=== PATIENT | male | born 1935 | race Caucasian/White ===

== ENCOUNTER 2017-02-28 14:15 | Inpatient (IN) | payer MEDICARE, BC ==
[~2017-02-28] VITALS: Ht 175.3 cm; Wt 91.7 kg
--- NOTE | ~2017-02-28 | CON ---
PATIENT'S NAME: POP LIU [facility] AGE: 81 Y [address] ROOM: [place] [address] LOCATION: GICU ADMIT DATE: 02/28/2017 Consultation DISCHARGE DATE: FAMILY PHYSICIAN: Gustavo Guidry MD ATTENDING PHYSICIAN: MARVIN FELIX REFERRING PHYSICIAN: Rose Marie Aguilar MD Consult for Dr. Mar, hospitalist. This 81-year-old gentleman is referred for rehab evaluation/GIRP evaluation admission. He was admitted on 02/28/2017 with history of root canal work 2 days before and was noted to be on amoxicillin; however, he reports he became confused progressively and spiked temperature of 102 Fahrenheit. He was admitted to the local hospital and started on Zosyn. CT scan of the brain showed a little enlargement of the ventricles of the brain. He was referred here for definitive management with questionable meningitis. He did have meningitis 4 years ago QAMARKER] post dental procedure. MEDICAL HISTORY: As follows: 1. Chronic lower extremity edema with congestive heart failure. 2. Hypertension. 3. Coronary artery disease. 4. Bilateral carpal tunnel syndrome release. 5. Benign prostatic hypertrophy. He is now alert, fairly well oriented, hard of hearing, can follow instructions well. Can move all 4. Cranial nerves 2 through 12 are within normal limits. Speech is clear and not wet. His muscle strength throughout is at least 4- to 4. He is a little bit unsteady and leans to one side, mostly to the right when he walks. He is at risk of falling. He can control his bowel and bladder well. Neurologically, otherwise intact. MEDICATIONS: He is on: 1. Colace. 2. Lisinopril. 3. Coreg. 4. Florastor. 5. Protonix. 6. Ibuprofen. 7. Heparin. PATIENT'S NAME: POP LIU [facility] AGE: 81 Y [address] ROOM: [id number] [place] [address] LOCATION: GICU ADMIT DATE: 02/28/2017 Consultation DISCHARGE DATE: FAMILY PHYSICIAN: Gustavo Guidry MD ATTENDING PHYSICIAN: MARVIN FELIX 8. KCl. 9. Aspirin. 10. Apresoline. 11. Tylenol. 12. NaCl 0.9%. 13. Labetalol. 14. Flomax. 15. Zofran. 16. Rocephin. 17. . ASSESSMENT AND PLAN: He can ambulate slowly up to 30 feet, but he is at risk of falling with contact guard assistance and front-wheeled walker. This gentleman will benefit from intensive rehabilitation. I will be happy to take him to rehab if we have an opening at the present time, we have a full unit. However, I will watch him alongside with you. We will continue him on PT, OT. Please see the orders. All the above was explained to him. He verbalized understanding, in agreement. MD GIGI HUITRON/caseyl /[id number] d: 03/05/[id number] t: 03/06/17 0759, CONSULTATION REPORT
--- NOTE | ~2017-02-28 | DS ---
PATIENT'S NAME: POP LIU [facility] AGE: 81 Y [address] ROOM: [id number] [place], [place] [address] LOCATION: GICU ADMIT DATE: 02/28/2017 Discharge Summary DISCHARGE DATE: 03/07/2017 FAMILY PHYSICIAN: Gustavo Guidry MD ATTENDING PHYSICIAN: Tammie Kaur ADMITTING DIAGNOSIS: Aseptic meningitis. DISCHARGE DIAGNOSIS: Aseptic meningitis. SECONDARY DIAGNOSIS: Dementia, hypertension, BPH, history of fall. PROCEDURES: Lumbar puncture, MRI of head and lumbar and sacral. CONSULTATION: Infectious Disease and Neurosurgery. HISTORY OF PRESENT ILLNESS: The patient is a 81-year-old gentleman with past medical history of hypertension, dementia, BPH, and history of meningitis, who presents here with possible meningitis from [facility]. The patient recently had a root canal done and was on amoxicillin. The patient was noted to be more confused and with elevated temperature. The patient was seen at [facility] and was found to have a temp of 102, he was started on Zosyn. There was concern for meningitis and the patient was transferred to our hospital for further care. HOSPITAL COURSE: The patient had LP done while he was here. The patient was started on ceftriaxone, vancomycin, and acyclovir empirically. LP did not show any signs of bacterial infection. The only significance was elevated protein. Cultures were negative including for a PCR for virus including enterovirus, HSV-1 and HSV-2. MRI of the lumbar sacral was done for possible Parameningeal meningitis since protein was elevated, also MRI of head was acquired, both were unremarkable. The patient was also seen by Neurosurgery as the patient has mildly elevated dilated ventricles. From Neurosurgery standpoint, there was no indication for any intervention. ID was consulted for possible meningitis. Since the patient had received antibiotics before his LP at [place], it was decided just to continue antibiotic at least for 8 days. The patient completed 8 days of antibiotic. During his stay, the patient is afebrile and his confusion was resolved. Etiology of his presentation most likely secondary to aseptic meningitis, nonbacterial. The patient was seen by rehab and was recommended for the [facility]. The patient was transferred to [facility] for further rehab. Discussed case was Dr. Keating, the accepting physician. CONDITION: Stable. PATIENT'S NAME: STUDNICKA, POP J [facility] AGE: 81 Y [address] ROOM: [id number] [place], [place] [address] LOCATION: GICU ADMIT DATE: 02/28/2017 Discharge Summary DISCHARGE DATE: 03/07/2017 FAMILY PHYSICIAN: Gustavo Guidry MD ATTENDING PHYSICIAN: Tammie Kaur DISPOSITION: [facility]. DISCHARGE MEDICATIONS: Please see MAR. PENDING STUDIES: No pending studies. FOLLOWUP: Follow up with primary care physician and Dr. Keating at [facility]. PHYSICAL EXAMINATION: VITAL SIGNS: Temperature 97.5, blood pressure 127/59, pulse of 80, respiratory rate of 16. GENERAL APPEARANCE: The patient is alert and awake, sitting on the chair voicing that he wants to go home. CHEST: Clear to auscultation bilaterally. EYES: Extraocular muscle intact. HEART: Regular rate and rhythm. No murmurs, rubs, or gallops. ABDOMEN: Soft, nontender, and nondistended. Bowel sounds present. BIOCHEMISTRY TECHNOLOGIST: The patient is alert and oriented x2 not oriented to time. Motor and sensory grossly intact. Greater than 30 minutes was spent on discharge planning. MD ROHAN PERALTA/lelia /[id number] d: 03/07/17 2339 t: 03/09/17 0920, DISCHARGE SUMMARY
--- NOTE | ~2017-02-28 | HP ---
PATIENT'S NAME: POP LIU [facility] AGE: 81 Y [address] ROOM: [place] [address] LOCATION: [facility] ADMIT DATE: 02/28/2017 History & Physical DISCHARGE DATE: FAMILY PHYSICIAN: Gustavo Guidry MD ATTENDING PHYSICIAN: MARVIN FELIX DATE OF SERVICE: CHIEF COMPLAINT: Altered mental status. HISTORY OF PRESENT ILLNESS: This is obtained primarily from records accompanying the patient from [place] as well as from his family. He is a 81-year-old male with past medical history, which is incomplete, but will be discussed further below. He had a root canal 2 days ago. He was prophylactically put him on amoxicillin. Subsequently, the patient became progressively more confused and unsteady. He did develop a temperature of 102 degrees Fahrenheit. He was admitted to the hospital in [place] and started on Zosyn. A CAT scan of his head done at the hospital is verbally conveyed to have an "enlarged ventricle." There was a concern for meningitis, and the patient was transferred to [facility] for further evaluation and management. At this point, the patient is alert and oriented, possibly to his name. He is extremely tremulous and unable to provide any further details. Per discussion with his , she is concerned about meningitis as the patient has had a similar episode where he developed meningitis subsequent to a dental procedure approximately 4 years ago. That was treated in [place]. We do not have records of that. REVIEW OF SYSTEMS: The patient denies any nausea, vomiting, chest pain, and palpitations, though at this point, he is quite altered and review of systems is not accurate. PAST MEDICAL HISTORY: This is incomplete, but the patient's reports a history of: 1. Coronary artery disease. 2. Hypertension. 3. Chronic lower extremity edema. PAST SURGICAL HISTORY: Significant for carpal tunnel bilaterally. CURRENT MEDICATIONS: 1. Augmentin. PATIENT'S NAME: POP LIU [facility] AGE: 81 Y [address] ROOM: [place] [address] LOCATION: [facility] ADMIT DATE: 02/28/2017 History & Physical DISCHARGE DATE: FAMILY PHYSICIAN: Gustavo Guidry MD ATTENDING PHYSICIAN: MUNDORF,MARVIN 2. Aspirin 81. 3. Atorvastatin 10. 4. Coreg 12.5. 5. Cyanocobalamin. 6. Folic acid. 7. Furosemide. 8. Garlic. 9. Lisinopril. 10. Lutein. 11. Berthoud-3. 12. Omeprazole. 13. Potassium. 14. Flomax. SOCIAL HISTORY: Negative for any history of ongoing toxic habits. FAMILY HISTORY: Reviewed and noncontributory due to his advanced age. PHYSICAL EXAMINATION: VITAL SIGNS: At this point, blood pressure 190/80, heart rate is in the 50s, saturating 96%, temperature is 102 degrees Fahrenheit, and respirations are 16. GENERAL APPEARANCE: He is a well-developed, well-nourished, elderly male, in no acute distress, but extremely uncomfortable and with fine tremor. He does not appear toxic. NEUROLOGIC: Grossly nonfocal as the patient is not fully cooperative with the exam. EYES: Shows surgical pupils bilaterally. I could not locate his optic disk with the plain ophthalmoscope. LYMPHATIC: Shows no cervical lymphadenopathy. ENDOCRINE: Shows no thyromegaly. LUNGS: Clear to auscultation bilaterally. HEART: Heart rate is regular. No appreciable murmurs, gallops, or rubs. GI: Abdomen is soft and nontender. : No costovertebral angle tenderness. VASCULAR: 2+ pedal pulses. MUSCULOSKELETAL: No muscle or joint abnormalities. SKIN: Warm and dry. PSYCHIATRIC: Cannot be assessed. LABORATORY DATA: Review all of the labs from the outside facility shows a normal white count without any shift and a normal metabolic profile. PATIENT'S NAME: POP LIU [facility] AGE: 81 Y [address] ROOM: [place] [address] LOCATION: [facility] ADMIT DATE: 02/28/2017 History & Physical DISCHARGE DATE: FAMILY PHYSICIAN: Gustavo Guidry MD ATTENDING PHYSICIAN: MARVIN FELIX Review of the CAT scan does show considerable ventriculomegaly. ASSESSMENT AND PLAN: This is a 81-year-old male, admitted primarily for fever and encephalopathy. Individual problems to be addressed. 1. Encephalopathy: This either has an infectious versus a structural origin. At this point, I discussed the case with Dr. Aguilar, Neurosurgery, to rule out hydrocephalus. We will hold off on lumbar puncture until a neurosurgical consultation has been conducted. I think that while an infectious etiology is possible, it is less likely given nontoxic appearance and normal white count/differential. We will consider performing LP based on recommendations from Neurosurgery. Subsequent to that, we will treat the patient aggressively with antibiotics and antivirals until we have the blood cultures and CSF studies back. 2. Accelerated hypertension: This is multifactorial due to underlying essential hypertension as well as encephalopathy/confusion. We will treat that with p.r.n. pushes of labetalol. 3. Ventriculomegaly: As per item #1. 4. Benign prostatic hyperplasia: As implied by his medical regimen, we will continue him on Flomax based on how well he is able to swallow. 5. Essential hypertension: We will try and continue him on his oral medications based on how well he can swallow. 6. Deep venous thrombosis prophylaxis will be instituted once the patient has been seen by Neurosurgery and workup is under way. Additional management will depend on clinical course. Time dedicated to patient encounter is 35 minutes. MD MISHA BELCHER/lelia /[id number] D: T: HISTORY & PHYSICAL
[2017-02-28] MEDS ORDERED: AMOXICILLIN500 M1 PO (15:40)
[2017-02-28] MEDS ORDERED: ASPIRIN (CHILDR81 MG PO (15:41)
[2017-02-28] MEDS ORDERED: COREG12.5 MG PO (15:41)
[2017-02-28] MEDS ORDERED: PRILOSEC20 MG PO (15:42)
[2017-02-28] MEDS ORDERED: K-TAB 10MEQ10 MEQ PO (15:42)
[2017-02-28] MEDS ORDERED: LASIX20 MG PO (15:43)
[2017-02-28] MEDS ORDERED: PRINIVIL OR ZES10 MG PO (15:43)
[2017-02-28] MEDS ORDERED: LIPITOR10 MG PO (15:43)
[2017-02-28] MEDS ORDERED: FLOMAX0.4 MG PO (15:44)
[2017-02-28] MEDS ORDERED: VITAMIN B-122000 MC1 PO (15:45)
[2017-02-28] MEDS ORDERED: MULTI-VITAMIN1 EAC1 PO (15:45)
[2017-02-28] MEDS ORDERED: LUTEIN-ZEAXANT1 EACH PO (15:46)
[2017-02-28] MEDS ORDERED: GARLIC1000 MG PO (15:46)
[2017-02-28] MEDS ORDERED: FISH OIL OMEGA1 EAC2 PO (15:48)
[2017-02-28 17:16] LABS: BASOPHIL % 0.4 %; EOSINOPHIL # 0.1 K/uL (0.0-0.5); HEMATOCRIT 40.1 % (37.0-53.0); IMMATURE GRANULOCYTE % 0.3 %; LYMPHOCYTE # 1.7 K/uL (0.8-4.0); LYMPHOCYTE % 25.3 %; MCH 34.6 pg (27.0-34.0); MCHC 34.9 gm/dL (32.0-36.5); MONOCYTE # 0.5 K/uL (0.0-1.0); MONOCYTE % 6.9 %; NEUTROPHIL # (ANC) 4.5 K/uL (1.4-9.0); NEUTROPHIL % 66.1 %; NRBC % 0 /100WBC (0-0.00); PLATELET COUNT 184 K/uL (150-450); RBC 4.05 M/uL (3.50-5.50); RDW-CV 11.9 % (11.9-14.6); WBC 6.8 K/uL (4.0-11.0)
[2017-02-28 17:37] LABS: ALBUMIN 3.3 gm/dL (3.5-5.0); ALK PHOS 60 IU/L (33-138); ALT 17 IU/L (12-78); ANION GAP 12.7 (10.0-19.0); AST 15 IU/L (10-40); BLOOD UREA NITROGEN 14 mg/dL (6-24); CALCIUM 8.7 mg/dL (8.5-10.5); CHLORIDE 102 mMol/L (96-110); CO2 25 mMol/L (22-32); CREATININE 1.1 mg/dL (0.6-1.3); ESTIMATED GFR (MDRD EQUATION) > 60; MAGNESIUM 2.2 mg/dL (1.8-2.6); PHOSPHORUS 2.4 mg/dL (2.5-4.9); POTASSIUM 3.7 mMol/L (3.7-5.1); SODIUM 136 mMol/L (135-145); TOTAL BILIRUBIN 0.6 mg/dL (0.0-1.5); TOTAL PROTEIN 7.5 g/dL (6.0-8.4)
--- NOTE | 2017-02-28 19:24 | NUR ---
PT IS A 81 YO MALE, CAME HERE VIA AMBULANCE FROM [facility]. PT HAD BEEN AT HOME C/O TOOTHACHE FOR 1 WEEK, WENT TO DENTIST ON THURSDAY AND WAS STARTED ON ANTIBIOTICS. HAD ROOT CANAL ON THURSDAY, DID NOT FEEL WELL THAT EVENING. THURSDAY WAS UNABLE TO STAND, GENERALIZED WEAKNESS, CONFUSED. CALLED 911. STATES WHEN HE ARRIVED TO [facility] HIS TEMP WAS 106.0. PT WORSENED AND WAS SENT TO [facility]. UPON ARRIVAL PT WAS HYPERTENSIVE, TACHYCARDIC, TREMORRING, LIP SMACKING, NOT FOLLOWING COMMANDS WELL, PULLING AT CORDS, MAKING CONFUSED STATEMENTS, TRYING TO CLIMB OUT OF BED. LUNG SOUNDS CLEAR AND DIM ON RA. ACTIVE BOWEL SOUNDS. EDEMA NOTED TO LOWER LEGS. INCONTINENCE. TEMP 99.6. HERE TO R/O MENINGITIS. HAS HX OF HTN, HIGH CHOLESTEROL, EDEMA, DIFFICULTY WITH URINATION, HEART CATH, TONSILECTOMY, BACK SURGERY, HAMMER TOE SURGERY.
--- NOTE | 2017-02-28 19:47 | NUR ---
PT HERE AT 190 PER BED FOR LUMBAR PUNCTURE PER DR LUNA. PT VERY JITTERY, DIFFICULT TO UNDERSTAND. MONITORS APPLIED. V/S TO BE TAKEN Q5 MIN. A FAWN SUPERVISOR MAJOR APPLIANCE ASSEMBLY GIVES IV SEDATION, STARTS PROCEDURE AT 1910. PT TO LEFT LATERAL POSITION, PT RESTS WELL, OR NURSE ASSISTS. 1939 PROCEDURE COMPLETED. PT TOLERATES WELL. SEE V/S POSTED IN CHART. PT TO ROOM PER BED 1953
--- NOTE | 2017-03-01 04:57 | NUR ---
Significant Event: As the shift has progressed patient has improved neurologically. Now patient is alert and responds to name. Speaks in phrases/sentences instead of one-word answers. Denies pain/headache/SOB. Denies numbness or tingling. Now follows all commands and moves spontaneously. PERRLA. Continues to have lip smacking and tremors but not as bad as earlier in the shift. Refuses to answer orientation questions. Per , patient can be stubborn. Asked patient if he was being ornery and he stated, "Yes, I'm just that type of carrington." 2+ pulses. Edema throughout. Can be tachycardic at times but this has improved as the shift goes on as well. Labetalol gtt was started at 2010 and stopped at 6. SBP goal < 180. Restless/agitated at times, and during these times is when he is typically hypertensive. Does pull at cords. D/C IV to right inner forearm d/t c/o pain. Continues to have PIV to left inner forearm infusing NS at TKO and is currently on intermittent Vancomycin, Rocephin, Ampicillin, and Acyclovir. Max temp this shift 101.7. Placed fan in room and ice packs--patient very warm. Gave rectal Tylenol and temp down to 98.2 orally. On room air. Lungs clear and diminished. Remains in droplet isolation for r/o meningitis. Incontinent of urine. Bowel sounds active. No BM this shift. NPO. Bruising to arms and venous staining to legs. Callous to toe. Bedrest. Remains in a 1:1 for impulsiveness. Hi-lo bed. Follow up: activity, diet, monitor blood pressure and neuro status, monitor temperature, 1:1
--- NOTE | 2017-03-01 17:45 | NUR ---
Significant Event: PT STARTED SHIFT DISORIENTED, GARBLED SPEECH, CONFUSED, UNABLE TO COOPERATE. 0945 WRIGHT INSERTED FOR RETENTION, 1000 ML OUT RIGHT AWAY. TEMP 101.4 AT 0830, RECTAL TYLENOL GIVEN. INCREASED TO 102.5 1100, IV TYLENOL GIVEN. TEMP 102.4 AT 1245, RECTAL THERMOMETER AND COOLING BLANKET APPLIED. TREMORS AND LIP SMACKING CONTINUED THROUGHOUT SHIFT. INCREASED CONFUSION AND HALLUCINATION AT 1400. TEMP DECREASED TO 99.0 AT 1500 AND LEFT ANTERIOR UPPER ARM PIV INSERTED FOR IV ANTIBIOTICS. LEFT POSTERIOR UPPER ARM IV STILL IN PLACE. AT 1500 PT BEGAN TO RECOGNIZE FAMILY MEMBERS AND COOPERATE WITH CARES. 1600 TEMP BROKE TO 98.6, WITHIN 5 MIN BACK UP TO 100.5, CURRENTLY AT 100.8, WITH COOLING BLANKET AND ICE PACKS. RECTAL MOTRIN GIVEN. HYDRALAZINE GIVEN X2. HIGH LOW BED, 1:1 FOR PULLING CORDS AND FALL RISK. Follow up: CONTINUE TO MONITOR
--- NOTE | 2017-03-02 02:47 | NUR ---
Significant Event: Patient has been alert and oriented to self. Occasionally states the correct month or month of . Is conversationally confused and knows he is confused. Restless at times and pulls at lines. Follows commands and moves spontaneously. PERRLA. Denies pain, numbness, or tingling. States, "I'm doing fine." Continues to have lip smaking and tremors that have improved signficantly. 2+ pulses. Edema throughout. Can be tachycardic at times, otherwise is SR. HTN at times. Did give Hydralazine IVP for SBP > 180. 2 PIVs to left forearm, one is SL with no complications and the other is infusing NS at TKO without complications. Patient continues on Rocephin, Acyclovir, and Vancomycin. Continues in droplet isolation for r/o meningitis. Max temp 100.5. Continues to use a cooling blanket to assist with temperature regulation. Also has a fan in room. On room air. Lungs clear and diminished. Sanders intact draining yellow urine with sediment without complications. Bowel sounds active. No BM this shift. Poor PO intake. Had sips of water this shift. Bedrest. Bruising to arms and venous staining to legs. Callous to toe. Remains in 1:1 d/t impulsiveness. Hi lo bed. Follow up: alarms, 1:1, monitor VS and neuro status, intake
[2017-03-02 05:51] LABS: BASOPHIL % 0.1 %; HEMOGLOBIN 14.8 g/dL (11.0-16.0); IMMATURE GRANULOCYTE % 0.4 %; LYMPHOCYTE # 1.3 K/uL (0.8-4.0); MCH 34.8 pg (27.0-34.0); MCHC 35.2 gm/dL (32.0-36.5); MCV 98.8 fl (83.0-98.0); MONOCYTE # 0.6 K/uL (0.0-1.0); NEUTROPHIL % 80.5 %; NRBC % 0 /100WBC (0-0.00); PLATELET COUNT 191 K/uL (150-450); RBC 4.25 M/uL (3.50-5.50); RDW-CV 12.1 % (11.9-14.6)
[2017-03-02 06:12] LABS: ALK PHOS 55 IU/L (33-138); ALT 19 IU/L (12-78); ANION GAP 12.8 (10.0-19.0); AST 32 IU/L (10-40); BLOOD UREA NITROGEN 13 mg/dL (6-24); CALCIUM 8.6 mg/dL (8.5-10.5); CHLORIDE 104 mMol/L (96-110); CO2 22 mMol/L (22-32); CREATININE 0.9 mg/dL (0.6-1.3); ESTIMATED GFR (MDRD EQUATION) > 60; MAGNESIUM 2.2 mg/dL (1.8-2.6); PHOSPHORUS 2.8 mg/dL (2.5-4.9); POTASSIUM 3.8 mMol/L (3.7-5.1); SODIUM 135 mMol/L (135-145); TOTAL PROTEIN 7.1 g/dL (6.0-8.4)
[2017-03-02 06:15] LABS: TOTAL BILIRUBIN 0.8 mg/dL (0.0-1.5)
--- NOTE | 2017-03-02 14:55 | NUR ---
Talked with patient's nurse and reviewed demographics. Patient lives in [place] with his spouse. Nurse says if patient continues to improve, she thinks he may be able to go home in a few days. ID to see on Thu. Will follow.
--- NOTE | 2017-03-02 17:35 | NUR ---
Significant Event:Patient is alert to self. At times is alert to town and time. Needs frequent reorientation. Forgetful. Unable to assess sensation due to patients cognitive status. At times was able to tell me that he knew he was in the hospital for r/o meningitis and that this the second time this has happened to him. Moves extremities spontaneously and on command. Equal strength noted throughout. Lungs clear and diminished. VSS on room air. Hydralazine for SBP >180, did not have to give this for this shift. NSR on telemetry. Bowel sounds active. Sanedrs catheter intact. Bilateral calf pumps in place, heparin in use for VTE prophylaxis. No s/s of pain. Peripheral IV times 2 intact. 1 is saline locked and 1 has NS infusing at TKO. Intermittent antibiotics. Regular diet. Needs encouragement with oral intake. Takes medications whole with water without difficulty. Made NTU status this shift. Patient does shiver frequently. Follow up:Monitor neuro status.
--- NOTE | 2017-03-03 02:24 | NUR ---
Significant Event:Patient alert and oriented to self, sometimes place, disoriented to time. Full lift. States no pain. Moves all extremeites spontaneously and to command. Pupils equal and reactive. PIV x2 to left forearm. Lower IV is infusing NS at tko. Upper one is saline locked. Has had some htn with SBP in the 170's. Afebrile this shift. Continues lipsmacking behavior at times. Sanders patent. Droplet isolation, continues IV ATB. Follow up:Monitor for temp. Hydralazine for SBP greater than 180.
[2017-03-03 12:49] LABS: ESTIMATED GFR (MDRD EQUATION) > 60
--- NOTE | 2017-03-03 15:42 | NUR ---
Significant Event:Patient is alert to self always. Intermittently oriented to place and time. Per patients son it is normal for him to mumble words at times. PERRLA. Denies numbness or tingling. Moves extremities spontaneously and on command, equal weak strength noted throughout. Patients extremities are rigid, tremors noted. Dr. Aguilar called Dr. Chacon about patients rigidity, tremors, lip smaking, and Altered mental status. MRI of the brain was ordered and completed this shift. Dr. Chacon added to the patients census. Lungs clear and diminished. VSS on room air. NSR on telemetry. Bowel sounds active, no bm this shift. Bolivar catheter removed this morning. Patient has voided 175 post bolivar removal. Patient ambulates with 2 assist, gaitbelt, and walker, shuffled gait noted. Heparin for VTE prophylaxis. No s/s of pain. Patient takes medications without difficulty. Peripheral IV has NS at TKO and intermittent antibiotics. Regular diet, poor appetite. Patient continues in droplet precautions. Follow up:
--- NOTE | 2017-03-04 02:55 | NUR ---
Significant Event:Patient alert and oriented to self. Disoriented to place/time. Up with 2 assist/gb/walker pivot. Moves all extremeties spontaneously and to command. Pupils equal and reactive. PIV infusing NS at TKO. IV Atb's continue. No c/o pain. HTN with SBP in the 170's. Voids small amounts per urinal, sitting at bedside. Droplet precautions continued. Continues to have rigidity at times, lip smacking and tremoring at times. Follow up:continue atb's.
--- NOTE | 2017-03-04 08:26 | NUR ---
A - PT SCREENED D/T LOS. A/O X 1. GLU 93, BUN/WHISKEY FILTERER 13/1.0, ALB 3.0. ON DROPLET PRECAUTIONS. PT W/ 1+ UE AND 2+ LE EDEMA. DIET: REGULAR W/ INTAKE OF REFUSED TO 25%. D - AT RISK W/ INADEQUATE ORAL INTAKE R/T DECREASED APPETITE AEB INTAKE RECORD. I - GOAL: 50% INTAKE BY NEXT REVIEW. M/E - WILL SEND ENSURE W/ BF AND DINNER AND F/U ON INTAKE IN 2-3 DAYS.
[2017-03-04 12:29] LABS: BILIRUBIN URINE NEGATIVE (NEGATIVE); BLOOD URINE 50 /UL (NEGATIVE); COLOR URINE YELLOW (YELLOW); GLUCOSE URINE NEGATIVE (NEGATIVE); KETONE URINE 5 mg/dL (NEGATIVE); LEUKOCYTES URINE NEGATIVE /UL (NEGATIVE); NITRITE URINE NEGATIVE (NEGATIVE); PROTEIN URINE 15 mg/dL (NEGATIVE); TURBIDITY URINE CLEAR (CLEAR); UROBILINOGEN URINE NORMAL (NORMAL)
[2017-03-04 12:40] LABS: BACTERIA URINE FEW (NEGATIVE); EPITHELIAL URINE 0-2 #/HPF (NEGATIVE); WBC URINE 0-2 #/HPF (NEGATIVE)
--- NOTE | 2017-03-04 17:42 | NUR ---
Significant Event: Alert to name and . Denies N/T. Follows commands. Denies N/T. Moves everything spontaneously. Tremors noted to bilateral upper arms. Lip smacking at times. Leans to the right. Needs several verbal cues when ambulating. [place]. VSS. Hypertensive. Labetolol given X1 this shift. Generalized edema. Room air with sats in the mid 90s. LS clear and diminished. Voids per urinal. Incontinent at times. Regular diet. Takes pills whole with no issues. No apparent skin issues. L) medial forearm. TKO. 2 assist with gaitbelt and walker. Remains in droplet isolation - R/O meninigitis. Denies pain. Pleasant and cooperative with cares. Follow up:
--- NOTE | 2017-03-05 04:28 | NUR ---
Significant Event: FIRST ASSESSMENT PATIENT WAS A/O X3, 2ND AND 3RD PATIENT WAS A/OX2- DISORIENTED TO TIME. FORGETFUL. PERRLA. FOLLOWS COMMANDS-DOES NEED CUEING. LOWER EXTREMITIES ARE WEAKER THAN UPPERS. VSS. NSR 80-90'S, SBP 130-180. TO KEEP SBP LESS THAN 180-PRN HYDRALAZINE. 1-2+ EDEMA. ROOM AIR. REGULAR DIET- TAKES PILLS WHOLE AND ONE AT A TIME. USES URINAL AND BSC WITH 2A GB/WALKER. L) WRIST PIV- NS TKO. IS INCONT AT TIMES AND VOIDS HOURLY. CAN BE IMPULSIVE. Follow up: ALARMS ON AT ALL TIMES.
[2017-03-05 06:01] LABS: BASOPHIL % 0.2 %; EOSINOPHIL % 0.5 %; HEMATOCRIT 35.3 % (37.0-53.0); HEMOGLOBIN 12.4 g/dL (11.0-16.0); IMMATURE GRANULOCYTE % 0.3 %; LYMPHOCYTE # 2.1 K/uL (0.8-4.0); LYMPHOCYTE % 34.1 %; MCH 34.1 pg (27.0-34.0); MCHC 35.1 gm/dL (32.0-36.5); MONOCYTE # 0.5 K/uL (0.0-1.0); MONOCYTE % 8.5 %; MPV 9.1 fl (9.4-12.4); NEUTROPHIL # (ANC) 3.4 K/uL (1.4-9.0); NEUTROPHIL % 56.4 %; NRBC % 0 /100WBC (0-0.00); PLATELET COUNT 189 K/uL (150-450); RBC 3.64 M/uL (3.50-5.50); RDW-CV 11.9 % (11.9-14.6)
--- NOTE | 2017-03-05 12:59 | NUR ---
Chart reviewed. Attempted to contact patients but no answer on phone. Will continue to try and contact to discuss discharge plans.
--- NOTE | 2017-03-05 14:56 | NUR ---
Significant Event: PT IS ALERT AND ORIENTED X3. FOLLOWS COMMANDS AND RESPONDS APPROPRIATELY. NO C/O NUMBNESS/TINGLING/PAIN. MOVES EXTREMITIES ON COMMAND AND SPONTANEOUSLY WITH MODERATE STRENGTH. UP WITH 2A TO CHAIR. GENERALIZED EDEMA. SBP 129-171, HR 97-99. 94-96% ON RA. LUNG SOUNDS CLEAR AND DIM IN BASES. D/C ISOLATION AND ACYCLOVIR TODAY, D/C ROCEPHIN AFTER 03/06 2100 DOSE. PIV IN LEFT WRIST TKO. NO PRNs GIVEN. TAKES PILLS WHOLE. ALARMS Follow up: MONITOR
--- NOTE | 2017-03-06 03:59 | NUR ---
Significant Event: Patient alert, oriented to person, month, and year. Knows he is in the hospital but not what town. Forgetful and impulsive at times. Redirects easily. Up with 1 assist. Hypertensive with pressures 190s/80s. Hydralizine given and pressures 150s. Pleasant and cooperative with cares. Follow up: continue to monitor
--- NOTE | 2017-03-06 11:30 | NUR ---
A - NUTRITION FOLLOW-UP CONFUSED, CAN BE IMPULSIVE. DROPLET ISOLATION DISCONTINUED. NO NEW LABS NO NEW MEDS DIET: REGULAR W/ ENSURE ENLIVE BID. INTAKE 28% X8 MEALS. EST NEEDS: 1683-0918 KCAL, 73-88 GRAMS PROTEIN, FLUID NEEDS: 1ML/KCAL D - INADEQUATE ORAL INTAKE RELATED TO DECREASED APPETITE SECONDARY TO ALTERED MENTAL STATUS EVIDENCED BY PO 28% X8 MEALS. I - WILL CONTINUE W/ ENSURE ENLIVE BID. M/E - GOAL: PT WILL BE ABLE TO TOLERATE >50% OF MEALS AND AT LEAST ONE ORAL SUPPLEMENT PER DAY IN 3-5 DAYS.
--- NOTE | 2017-03-06 12:58 | NUR ---
Called and spoke with patients this morning. She would like patient to go tot the [place] [facility] prior to coming home. I called and spoke with Lisha at the [place] [facility]. Faxed referral information. Waiting to hear back. I also spoke with Franki and updated him. Will continue to follow.
--- NOTE | 2017-03-06 14:18 | NUR ---
Significant Event: PT ALERT, ORIENTATION VARIES. HIT OR MISS ON TIME/PLACE. HAD FALL THIS AM AT 0605. BED ALARM SOUNDED, FOUND ON KNEES ON FLOOR MAT NEXT TO BED. ORTHOSTATIC BPS SLIGHTLY POSITIVE, 500ML NS BOLUS. SBP 194-164. HR 92-118. WAS DROWSY AROUND 0800 AFTER SHOWER, OTHERWISE HAS BEEN ALERT AND COOPERATIVE. NO C/O N/T/PAIN. LOWER EXTREMITIES SLIGHTLY WEAKER THAN UPPERS. 2+ EDEMA TO MARLO LOWER EXTREMITIES. KNEE HIGH TEDS ON. LEFT HAND PIV SL'D. Follow up: PLAN TO D/C TO ORD SWING BED TOMORROW AM WITH AND BROTHER.
--- NOTE | 2017-03-06 14:49 | NUR ---
Received call from Lisha at the [facility]. They can accept patient for admission on Wednesday 03/07. They would like him there before 1pm. I called and updated patients . She states she does not drive but will get someone to bring her here to transport him to [place]. I called and updated Dr Mar with Dr Arana number for Dr Ren [phone]. Nurse to nurse report number of [phone]. I called and updated Bruce ANAYA. I also updated Franki of plan. He is in agreement with plan. Orders on chart, packet at desk, fax cover sheet to fax d/c orders on chart.
--- NOTE | 2017-03-07 06:01 | NUR ---
Significant Event: PT IS READY TO GO HOME. PT IS ALERT AND ORIENTED BUT FORGETFUL AT TIMES. PT BECAME AGITATED AT 2215 AND REMOVED IV. ORDERS WERE RECEIVED TO REMOVE THE IV AND DISCONTINUE TELEMETRY. PT WAS UP THROUGHOUT THE NIGHT TO THE BATHROOM AND INCONTINENT ONCE. TODAY'S PLAN IS TO BE DISCHARGED TO SWING BED IN ORD AROUND 1100. PT UP TO CHAIR AT 0300. ALARMS ON AT ALL TIMES. FALL ON 03/06/17. VITALS ARE STABLE AND AFEBRILE. LUNG SOUNDS ARE CLEAR ON ROOM AIR. DENIES PAIN. REPOSITIONS SELF. FAC AND COOPERATIVE WITH STAFF. Follow up: CONTINUED MONITORING. DISCHARGE TO ORD SWING BED.
--- NOTE | 2017-03-07 09:04 | NUR ---
Patient admitted for confusion post root canal. Here to rule out meningitis, which it was. Blood cultures and urine culture negative. Patient is alert to self, birthday and month. History of dementia. Pupils 2mm, brisk. Follows commands. Moderate strength, denies numbness/tingling. Edema to lower extremities, thready pulses. Lungs clear and dim on room air. Has bad BM x 2 so far today. No Iv access at this time. Up with 1 assist and walker. Denies pain. Plan to transfer to [facility] today per private auto.
== END 2017-03-07 11:00 | disposition swing bed (61) | DRG 97 ==
LOC: GICU 14:56
PROVIDERS: Internal Medicine; ADMIT Internal Medicine
PROC: 009U3ZX Drainage of Spinal Canal, Percutaneous Approach, Diagnostic (ICD-10-PCS; principal; 2017-02-28)
DX: G03.0 Nonpyogenic meningitis (principal); G93.40 Encephalopathy, unspecified; G93.89 Other specified disorders of brain; I11.0 Hypertensive heart disease with heart failure; I50.9 Heart failure, unspecified; I25.10 Atherosclerotic heart disease of native coronary artery without angina pectoris; Z79.82 Long term (current) use of aspirin; N40.1 Benign prostatic hyperplasia with lower urinary tract symptoms; R33.8 Other retention of urine; Z91.81 History of falling
CPT/HCPCS: A9577; J0131; J0133; J0290; J0360; J0696; J1644; J2001; J3370; J7030; J7040; J7050; J7060